=== PATIENT | female | born 1995 | race Caucasian/White ===

== ENCOUNTER 2017-05-10 09:29 | Emergency (ER) | payer BC ==
[~2017-05-10] VITALS: Ht 170.2 cm; Wt 46.3 kg
[2017-05-10 09:48] VITALS: BP 117/73
--- NOTE | 2017-05-10 10:15 | Emergency Room Report ---
History of Present Illness General Chief Complaint: Complications Source: Patient Present Illness HPI Patient is 21-year-old female who presented after increased abdominal pain. The patient reports having heavy bleeding beginning approximately one hour ago. t the she denies any fever. She reports having acute onset of blood clotting. She denies any dizziness or lightheadedness. Patient states that she recently been in rehabilitation. She reports having approximately 12 weeks Allergies: Coded Allergies: No Known Allergies (Unverified , 05/10/17) Patient History Past Medical History: see triage record Last Menstrual Period: 01/26/2017 Now: Yes : 3 Para: 0 Reviewed Nursing Documentation: PMH: Agreed, PSxH: Agreed Nursing Documentation-PMH Past Medical History: No History, Except For Review of Systems All Other Systems: negative except mentioned in HPI Physical Exam Vital Signs Date Time Temp Pulse Resp B/P (MAP) Pulse Ox O2 Delivery O2 Flow Rate FiO2 05/10/17 09:38 98.2 89 16 111/66 99 Room Air Sp02 EP Interpretation: reviewed, normal General Appearance: normal inspection, well appearing, no apparent distress, alert Head: atraumatic ENT: normal ENT inspection, hearing grossly normal, normal voice Neck: normal inspection, full range of motion, supple, no bony tend Respiratory: normal inspection, lungs clear, normal breath sounds, no respiratory distress, no retraction, no wheezing Cardiovascular #1: regular rate, rhythm, no edema Gastrointestinal: normal inspection, normal bowel sounds, non tender, soft, no guarding, no hernia Genitourinary: no CVA tenderness, other - os closed no bleeding noted Musculoskeletal: normal inspection, back normal, normal range of motion Neurologic: normal inspection, alert, oriented x3, responsive, speech normal Psychiatric: normal inspection, judgement/insight normal, mood/affect normal Skin: normal inspection, normal color, no rash Medical Decision Making Diagnostic Impression: Primary Impression: Threatened ER Course Patient is a for vaginal bleeding. Differential diagnosis included was not limited to incomplete , ectopic , a completed , threatened among others.Because of complexity of patient's case laboratory testing and imaging studies were ordered. The bedside ultrasound was performed and showed intrauterine without heart tones. The pelvic exam showed no evident bleeding and closed os. Pelvic ultrasound showed an intrauterine Labs Test 05/10/17 09:50 White Blood Count 10.4 K/UL (4.8-10.8) Red Blood Count 4.60 M/UL (4.20-5.40) Hemoglobin 14.5 G/DL (12.0-16.0) Hematocrit 42.1 % (37.0-47.0) Mean Corpuscular Volume 91 FL (80-99) Mean Corpuscular Hemoglobin 31.6 PG (27.0-31.0) Mean Corpuscular Hemoglobin Concent 34.6 G/DL (32.0-36.0) Red Cell Distribution Width 11.2 % (11.6-14.8) Platelet Count 262 K/UL (150-450) Mean Platelet Volume 7.9 FL (6.5-10.1) Neutrophils (%) (Auto) 77.5 % (45.0-75.0) Lymphocytes (%) (Auto) 12.8 % (20.0-45.0) Monocytes (%) (Auto) 8.3 % (1.0-10.0) Eosinophils (%) (Auto) 0.7 % (0.0-3.0) Basophils (%) (Auto) 0.7 % (0.0-2.0) Prothrombin Time 10.1 SEC (9.30-11.50) Prothromb Time International Ratio 1.0 (0.9-1.1) Activated Partial Thromboplast Time 30 SEC (23-33) Sodium Level 139 MMOL/L (136-145) Potassium Level 3.4 MMOL/L (3.5-5.1) Chloride Level 104 MMOL/L (98-107) Carbon Dioxide Level 24 MMOL/L (21-32) Anion Gap 11 mmol/L (5-15) Blood Urea Nitrogen 11 mg/dL (7-18) Creatinine 0.7 MG/DL (0.55-1.30) Estimat Glomerular Filtration Rate > 60 mL/min (>60) Glucose Level 66 MG/DL (74-106) Calcium Level 8.9 MG/DL (8.5-10.1) Total Bilirubin 0.3 MG/DL (0.2-1.0) Aspartate Amino Transf (AST/SGOT) 18 U/L (15-37) Alanine Aminotransferase (ALT/SGPT) 20 U/L (12-78) Alkaline Phosphatase 85 U/L (46-116) Total Protein 7.5 G/DL (6.4-8.2) Albumin 4.0 G/DL (3.4-5.0) Globulin 3.5 g/dL Albumin/Globulin Ratio 1.1 (1.0-2.7) Human Chorionic Gonadotropin, Quant [id number] mIU/mL (1-6) Last Vital Signs Date Time Temp Pulse Resp B/P (MAP) Pulse Ox O2 Delivery O2 Flow Rate FiO2 05/10/17 09:38 98.2 89 16 111/66 99 Room Air Status: improved Disposition: HOME, SELF-CARE Condition: Stable HanselEd May 10, 2017 10:15
[2017-05-10 10:17] LABS: BASOPHILS % (AUTO) 0.7 % (0.0-2.0); EOSINOPHILS % (AUTO) 0.7 % (0.0-3.0); LYMPHOCYTES % (AUTO) 12.8 % (20.0-45.0); MEAN CORPUSCULAR HEMOGLOBIN 31.6 PG (27.0-31.0); MEAN CORPUSCULAR HGB CONC 34.6 G/DL (32.0-36.0); MEAN CORPUSCULAR VOLUME 91 FL (80-99); MEAN PLATELET VOLUME 7.9 FL (6.5-10.1); MONOCYTES % (AUTO) 8.3 % (1.0-10.0); NEUTROPHILS % (AUTO) 77.5 % (45.0-75.0); PLATELET COUNT 262 K/UL (150-450); RED CELL DISTRIBUTION WIDTH 11.2 % (11.6-14.8); WHITE BLOOD COUNT 10.4 K/UL (4.8-10.8)
[2017-05-10 10:22] LABS: PROTHROMBIN TIME 10.1 SEC (9.30-11.50)
[2017-05-10 10:38] LABS: ANION GAP 11 mmol/L (5-15); CALCIUM 8.9 MG/DL (8.5-10.1); CARBON DIOXIDE 24 MMOL/L (21-32); CHLORIDE 104 MMOL/L (98-107); CREATININE 0.7 MG/DL (0.55-1.30); GLOMERULAR FILTRATION RATE > 60 mL/min (>60); POTASSIUM 3.4 MMOL/L (3.5-5.1); SODIUM 139 MMOL/L (136-145)
[2017-05-10 10:43] LABS: ALANINE AMINOTRANSFERASE 20 U/L (12-78); ALBUMIN/GLOBULIN RATIO 1.1 (1.0-2.7); ASPARTATE AMINO TRANSFERASE 18 U/L (15-37); TOTAL PROTEIN 7.5 G/DL (6.4-8.2)
[2017-05-10 11:30] VITALS: BP 113/68
[2017-05-10 12:40] VITALS: BP 113/68
--- NOTE | 2017-05-11 12:43 | Diagnostic Imaging Report ---
Indication: PAIN, vaginal bleeding, patient Technique: Transabdominal images only. Transvaginal images not obtained, reason not stated Comparison: None Findings: The uterus measures 13.5 cm length by 6.9 cm AP. Within the endometrium, there is a gestational sac. This contains a pole with a crown-rump length of 4.4 cm. This demonstrates positive heart activity, heart rate 140 beats for minute. There is also a small yolk sac demonstrated. No subchorionic hemorrhage. No myometrial abnormalities. The cervix is closed. Right ovary measures 3.7 cm length. It contains a small hemorrhagic corpus luteum. Left ovary measures 3 cm in length. No free cul-de-sac fluid Impression: Single live intrauterine , as described. Note that to malfunction of the standard ultrasound machine, it was necessary to use the vascular lab machine which does not have early gestation calculation software. Per growth chart, the crown-rump length corresponds to an approximately 11.3 week intrauterine No unusual features
== END 2017-05-10 12:40 | disposition home or self-care (01) ==
LOC: EMR 10:19
DX: O20.0 Threatened abortion (principal); Z3A.12 12 weeks gestation of pregnancy
CPT/HCPCS: 36415; 76815; 80053; 84702; 85025; 85610; 85730; 86850; 86900; 86901; 96361; 96374; 99284